=== PATIENT | female | born 1935 | race Caucasian/White ===

== ENCOUNTER → 2016-07-17 | Outpatient (CLI) | payer MEDICARE | END | disposition home or self-care (01) | LOC: LAB 08:45 | PROVIDERS: ATTEND Obstetrics & Gynecology | DX: R00.2 Palpitations (principal); E11.9 Type 2 diabetes mellitus without complications; I10 Essential (primary) hypertension; E03.9 Hypothyroidism, unspecified; K57.90 Diverticulosis of intestine, part unspecified, without perforation or abscess without bleeding; F41.9 Anxiety disorder, unspecified; M19.90 Unspecified osteoarthritis, unspecified site ==

== ENCOUNTER → 2016-07-28 | Outpatient (CLI) | payer MEDICARE ==
--- NOTE | 2016-07-31 11:27 | MAM ---
EXAM DESCRIPTION: Screening Mammogram,Bilateral CLINICAL HISTORY: 81 years, Female, Screening mammogram COMPARISON: February 03, 2014 TECHNIQUE: CC and MLO digital mammograms with computer aided detection. FINDINGS: There are scattered fibroglandular densities. There is no dominant mass nor any suspicious microcalcifications. Benign microcalcifications are present. IMPRESSION: BI-RADS 2: BENIGN FOLLOW-UP: Routine mammography screening. Electronically signed by: Alexys Garvin MD 07/31/2016 11:27 AM CDT
== END ==
LOC: RESP 09:54
PROVIDERS: ATTEND Obstetrics & Gynecology
DX: Z12.31 Encounter for screening mammogram for malignant neoplasm of breast (principal); R00.2 Palpitations
CPT/HCPCS: 93005; G0202

== ENCOUNTER → 2017-04-13 | Outpatient (CLI) | payer MEDICARE ==
--- NOTE | 2017-04-13 13:29 | US ---
EXAM DESCRIPTION: Renal: Ultrasound. CLINICAL HISTORY: RIGHT RENAL MASS D41.00 COMPARISON: Bilateral renal arterial Doppler evaluation on the same visit. TECHNIQUE: Transcutaneous scanning: Two-dimensional and Doppler modes. Technically difficult study due to patient body habitus and bowel gas. FINDINGS: Right kidney measures 7.9 x 4.7 x 5.1 cm; mid-renal cortical thickness 7 mm. . Increased in the cortex. No hydronephrosis No calcifications. Echogenic mass which appears to protrude from the mid kidney measuring 1.9 x 2.0 x 2.2 cm. Nonvascular. Relatively homogeneous. Otherwise lobulated contour of the kidney with no perinephric fluid. Normal vascularity. Proximal ureter not visualized. Left kidney measures 8.8 x 5.0 x 4.9 cm; mid-renal cortical thickness 8 mm.. Increased echogenicity of the cortex. No hydronephrosis. No calcifications. Lobulated contour of the kidney with no perinephric fluid. Normal vascularity.. Proximal ureter not visualized. Urinary bladder not visualized. Abdominal aorta diameter not measured. IMPRESSION: 1. Echogenic smooth mass projecting from the mid cortex of the right kidney. 2.2 cm maximum diameter This could represent a lipoma. Consider CT scan of the kidney without and with IV contrast. If renal function is diminished, consider MRI scan without and with gadolinium IV contrast. 2. Bilateral kidneys with increased cortical echoes and marked thinning. No hydronephrosis or large calcifications. Correlate for renal vascular disease. Electronically signed by: Nigel Hernandez MD 04/13/2017 1:28 PM [employer] [employer]
== END | disposition home or self-care (01) ==
LOC: US 08:01
PROVIDERS: ATTEND Urology
DX: D41.00 Neoplasm of uncertain behavior of unspecified kidney (principal)

== ENCOUNTER → 2017-06-01 | Outpatient (CLI) | payer MEDICARE ==
--- NOTE | 2017-06-01 17:28 | CT ---
EXAM DESCRIPTION: CT ABDOMEN AND PELVIS WITH CONTRAST CLINICAL HISTORY: RENAL CYST N28.1 renal mass COMPARISON: Previous CT abdomen and pelvis June 21, 2012 and February 03, 2011 as well as more recent sonogram April 13, 2017 TECHNIQUE: CT of the abdomen and pelvis are performed during IV bolus administration of 100 mL of Optiray 320. Oral contrast media is administered as well. FINDINGS: In the lower chest, scarring is seen in the left lung base with a calcified granuloma. Similar findings in the inferior lingula. In the right middle lobe, patchy chronic appearing consolidation is seen with clustered nodules in the peripheral segment of the right middle lobe and some patchy groundglass infiltrate. Bronchiectasis is seen in the area. Lesser nodularity with patchy infiltrate is seen in the lateral basal segment right lower lobe. Findings suggest indolent infection as with fungal or atypical mycobacterial agent. Similar lung disease was seen in the right middle lobe in May 2012. Heart size is normal. CT abdomen Multiple hepatic lesions are consistent with small and large cysts. These were present previously. The liver, spleen, pancreas, gallbladder, adrenal glands and stomach are otherwise normal in appearance. A mass in the posterior right kidney now measures 2.1 x 1.8 cm. This has increased in size since previous study in May 2012 where the lesion measured approximate 1.3 cm. The lesion is larger than on earlier study in 2010. Slowly growing mass in the kidney may be benign lesion such as oncocytoma (possible spoke wheel enhancement pattern). Angiomyolipoma without fatty components large enough to resolve on CT might be considered. The sonogram showed a hyperechoic mass raising the question of lipid content within the lesion. Multilocular cystic nephroma with multiple microcysts is possible but thought less likely. There is scarring in the left kidney. No retroperitoneal or mesenteric mass or adenopathy. No aortic aneurysm. No free air or free fluid. Bowel loops are unremarkable. No inflammation around the pancreas. No renal stones or hydronephrosis. No bowel dilatation to suggest obstruction. No free air or free fluid. CT pelvis Appendix appears normal. No inflammation around the cecum or terminal ileum or sigmoid colon. Numerous sigmoid diverticula are present. Calcifications in the pelvis are thought to be phleboliths. Uterus and ovaries are not seen, presumed to be surgically absent or small and atrophic. Bladder and distal ureters are negative for stones. Normal enhancement of pelvic vessels. No inguinal or lower pelvic adenopathy. Bone window images are negative for fracture or lytic lesion. Degenerative changes in the lower L-spine are prominent. Coronal and sagittal reformatted images confirm the findings. IMPRESSION: Posterior mid right renal mass has enlarged since previous studies. See above differential considerations. Scattered areas of renal cortical scarring in the left kidney. Multiple hepatic lesions consistent with cysts. Chronic appearing lung disease predominantly involving right middle lobe. This exam was performed according to our departmental dose-optimization program, which includes automated exposure control, adjustment of the mA and/or kV according to patient size and/or use of iterative reconstruction technique. Total DLP equals 448.58 mGycm. Electronically signed by: Ventura East MD 06/01/2017 5:27 PM [facility]
== END ==
LOC: LAB.O 08:03
PROVIDERS: ATTEND Urology
DX: N28.1 Cyst of kidney, acquired (principal)

== ENCOUNTER → 2018-09-27 | Outpatient (CLI) | payer MEDICARE | LOC: LAB.O 08:21 | PROVIDERS: ATTEND Family Medicine | DX: Z00.00 Encounter for general adult medical examination without abnormal findings (principal); E11.9 Type 2 diabetes mellitus without complications; M15.9 Polyosteoarthritis, unspecified; D51.9 Vitamin B12 deficiency anemia, unspecified; Z13.220 Encounter for screening for lipoid disorders ==

== ENCOUNTER → 2018-10-04 | Outpatient (CLI) | payer MEDICARE ==
--- NOTE | 2018-10-04 12:23 | MRI ---
EXAM DESCRIPTION: Brain w/oContrast: MRI. CLINICAL HISTORY: DEMENTIA COMPARISON: None. TECHNIQUE: Multiplanar, high-field MRI unit, multiple diffusion sequences, multiple conventional sequences without contrast. FINDINGS: Bilateral periventricular confluent hyperintense FLAIR and T2-weighted signal lesions in the spear radiata, and especially the centrum semiovale, frontoparietal and occipital lobes. Bilateral multiple foci of subcortical white matter lesions also. Frontal parietal and occipital lobes. Also bilateral focal temporal lobe subcortical white matter lesions. No hemorrhage, no cerebral edema, no mass-effect. No diffusion restriction. Multifocal hyperintense FLAIR lesions bilateral basal ganglia. No hemorrhage, mass effect, or diffusion restriction. Also prominent perivascular spaces. Bilaterally symmetric hyperintense FLAIR signal in the brainstem, without hemorrhage mass effect or diffusion restriction. Predominantly located in the joan. Normal signal in the bilateral cerebellar hemispheres. No hemorrhage, no parenchymal edema, no mass-effect. Concordance of the diffusion and non-diffusion sequences with no diffusion restriction. Cortical sulci, ventricles, and other CSF spaces, and the subdural spaces are age appropriate, including mild ventricular enlargement. No effacement or displacement. No midline shift. No extra-axial hemorrhage. Normal flow signal void in the major vessels of the [place], and the venous sinuses. IACs are symmetric bilaterally. Focal fluid signal in the right mastoid air cells; unremarkable on the left. No mass effect in the bilateral cerebellopontine angles. Pituitary gland occupies most of the sella. Base of the cerebellar tonsils is at the level of the foramen magnum. Marked left deviation of the posterior nasal septum, otherwise unremarkable paranasal sinuses. The bony calvarium is intact. IMPRESSION: 1. Diffuse bilateral white matter lesions in the centrum semiovale, spear radiata and subcortical white matter most likely related to aging/cerebral microvascular disease. Also involvement of the bilateral basal ganglia. Similar appearing lesions in the brainstem predominantly in the joan. No hemorrhage, no mass effect, no diffusion restriction. 2. Normal noncontrast MRI diffusion study with no evidence of acute or subacute, significant ischemia or infarction. 3. Most likely Inflammatory fluid in the right mastoid air cells. Posterior left deviation of the nasal septum. Electronically signed by: Nigel Hernandez MD 10/04/2018 12:21 PM CDT
== END ==
LOC: MRI 10:48
PROVIDERS: ATTEND Family Medicine
DX: F03.90 Unspecified dementia, unspecified severity, without behavioral disturbance, psychotic disturbance, mood disturbance, and anxiety (principal); R90.82 White matter disease, unspecified; J34.2 Deviated nasal septum

== ENCOUNTER → 2018-11-21 | Outpatient (CLI) | payer MEDICARE | LOC: YCFC.O 08:42 | PROVIDERS: ATTEND Family Medicine | DX: R01.1 Cardiac murmur, unspecified (principal); R09.89 Other specified symptoms and signs involving the circulatory and respiratory systems; E03.9 Hypothyroidism, unspecified ==

== ENCOUNTER → 2018-11-22 | Outpatient (CLI) | payer MEDICARE | LOC: US 13:04 | PROVIDERS: ATTEND Family Medicine | DX: R09.89 Other specified symptoms and signs involving the circulatory and respiratory systems (principal); R01.1 Cardiac murmur, unspecified ==

== ENCOUNTER 2019-04-25 09:16 | Emergency (ER) | payer MEDICARE ==
--- NOTE | 2019-04-25 10:21 | CT ---
EXAM DESCRIPTION: Head CLINICAL HISTORY: fall 2 am, rt forehead hematoma COMPARISON: MRI of the brain dated 10/04/2018. TECHNIQUE: Contiguous axial images through the head were obtained without intravenous contrast administration. Sagittal and coronal reconstructions were reviewed. FINDINGS: Moderate to severe periventricular white matter ischemia and moderate diffuse cortical volume loss. No evidence of acute major vascular territorial infarct or intraparenchymal hemorrhage. No intra-axial or extra-axial fluid collections are identified. The ventricles and cisterns appear normal in caliber. The sella and suprasellar regions appear normal. The structures of the posterior fossa are intact. The globes are intact bilaterally. The visualized paranasal sinuses and mastoid air cells are well-aerated. Right frontal scalp hematoma. No underlying acute bony abnormality. IMPRESSION: Right frontal scalp hematoma. No underlying acute bony abnormality or acute intercranial process. This exam was performed according to our departmental dose-optimization program, which includes automated exposure control, adjustment of the mA and/or kV according to patient size and/or use of iterative reconstruction technique. Electronically signed by: Lata York MD 04/25/2019 10:20 AM [facility]
--- NOTE | 2019-04-25 10:24 | CT ---
EXAM DESCRIPTION: Cervical Spine CLINICAL HISTORY: fall 2 am, rt forehead hematoma COMPARISON: None Available. TECHNIQUE: Cervical CT is performed with thin-section axial imaging. MPRs are created and reviewed as well. FINDINGS: The craniocervical junction is intact. The odontoid process is in good alignment with the lateral masses of C2. Straightening of the normal lordotic curvature of the lumbar spine. The vertebral body heights are well-maintained with no acute compression deformity. Multilevel degenerative disc disease and uncovertebral joint arthropathy is noted, worse at C4-C5 and C5-C6 levels. Grade 1 anterolisthesis of C6 over C7. No evidence of subluxation or spondylolisthesis. Mild scarring of the right lung apex. Remainder of the visualized prevertebral and paravertebral soft tissues appear normal. IMPRESSION: No acute traumatic abnormality of the cervical spine. This exam was performed according to our departmental dose-optimization program, which includes automated exposure control, adjustment of the mA and/or kV according to patient size and/or use of iterative reconstruction technique. Electronically signed by: Lata York MD 04/25/2019 10:22 AM [facility]
--- NOTE | 2019-04-25 10:31 | ED.PDOC ---
History of Present Illness - General Chief Complaint: Trauma Stated Complaint: head injury from fall Time Seen by Provider: 04/25/19 09:17 Exam Limitations: no limitations - History of Present Illness Initial Comments: The patient is a 83-year-old female presenting to the emergency room secondary to having tripped and fallen last night around 2 AM. She hit her right forehead. No laceration. She also hit her bottom lip. She has a very small non-gaping laceration there. No syncope. She is presenting secondary to the hematoma formation over the right forehead. No neck pain. No pain e lsewhere. No syncope. No altered mental status. No blood thinner use.No vision changes or dizziness. No pain with extraocular movements. No pain around the orbit itself. Timing/Duration: constant Severity: mild Improving Factors: nothing Worsening Factors: nothing Associated Symptoms: headaches Allergies/Adverse Reactions: Allergies NO KNOWN ALLERGY Allergy (Verified 04/25/19 09:28) Home Medications: Ambulatory Orders Pioglitazone HCl [Actos] 15 mg PO BEDTIME 04/25/19 Review of Systems - Review of Systems Constitutional: States: no symptoms reported EENTM: States: no symptoms reported Respiratory: States: no symptoms reported Cardiology: States: no symptoms reported Gastrointestinal/Abdominal: States: no symptoms reported Genitourinary: States: no symptoms reported Musculoskeletal: States: no symptoms reported, see HPI Skin: States: see HPI Neurological: States: headache Endocrine: States: no symptoms reported All other Systems: No Change from Baseline Past Medical History (General) - Patient Medical History Hx Stroke: No Hx Cardiac Disorders: No Hx Hypertension: Yes Hx Diabetes: Yes Hx MRSA: Yes - Leg 2007 MRSA Source:: Wound Family Medical History - Family History Mother Family History: No Known Physical Exam - Physical Exam General Appearance: Agitated, Alert, Comfortable, No apparent distress Eye Exam: bilateral normal Ears, Nose, Throat: hearing grossly normal, normal pharynx - Small laceration to the right lower lip. Non-gaping. Hemostatic. 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 No significant laceration to the forehead. Small laceration to the lip as above. Comments: Vital Signs - 24 hr 04/25/19 04/25/19 04/25/19 09:23 09:30 10:27 Temperature 96.6 F L 96.6 F L Pulse Rate [ 57 L 61 left brachial] Respiratory 18 16 Rate Blood Pressure 180/80 152/80 157/79 [left brachial] O2 Sat by Pulse 97 94 L Oximetry Progress - Progress Progress: 04/25/19 10:32 The patient is a 83-year-old female presenting to the emergency room after a fall last night at 2 AM. No evidence of concussion. Head CT showed no evidence of any intracranial pathology. CT scan of the cervical spine also show s no acute pathology. The patient will have significant bruising for the next couple of weeks. She should expect it to track downward. Motrin and Tylenol can be used for discomfort. Keep routine follow-up with primary care doctor. ER warnings were given for any worsening. abraham bruno [id number] Departure - Departure Clinical Impression: Hematoma of scalp Qualifiers: Encounter type: initial encounter Qualified Code(s): S00.03XA - Contusion of scalp, initial encounter Disposition: Discharge to Home or Self Care Condition: Fair Departure Forms: ED Discharge - Pt. Copy, Patient Portal Self Enrollment Diet: regular diet Activity: increase activity as tolerated Referrals: Jesse Orozco MD [Primary Care Provider] - 1-2 Weeks Home Medications: Ambulatory Orders Pioglitazone HCl [Actos] 15 mg PO BEDTIME 04/25/19 Additional Instructions: The patient is a 83-year-old female presenting to the emergency room after a fall last night at 2 AM. No evidence of concussion. Head CT showed no evidence of any intracranial pathology. CT scan of the cervical spine also shows no acute pathology. The patient will have significant bruising for the next couple of weeks. She should expect it to track downward. Motrin and Tylenol can be used for discomfort. Keep routine follow-up with primary care doctor. ER warnings were given for any worsening.
[2019-04-25 10:46] VITALS: BP 166/71; TEMP 97; O2SAT 91
== END 2019-04-25 10:42 | disposition home or self-care (01) ==
LOC: ER 09:16
DX: S00.03XA Contusion of scalp, initial encounter (principal); S00.83XA Contusion of other part of head, initial encounter; S01.511A Laceration without foreign body of lip, initial encounter; M50.323 Other cervical disc degeneration at C6-C7 level; I10 Essential (primary) hypertension; E11.9 Type 2 diabetes mellitus without complications; W01.0XXA Fall on same level from slipping, tripping and stumbling without subsequent striking against object, initial encounter; Y92.9 Unspecified place or not applicable

== ENCOUNTER → 2019-10-14 | Outpatient (CLI) | payer MEDICARE | LOC: LAB.O 10:23 | PROVIDERS: ATTEND Family Medicine | DX: E11.9 Type 2 diabetes mellitus without complications (principal); E03.9 Hypothyroidism, unspecified; E78.5 Hyperlipidemia, unspecified; I10 Essential (primary) hypertension ==

== ENCOUNTER 2020-01-20 08:36 | Emergency (ER) | payer MEDICARE ==
[2020-01-20 08:56] VITALS: TEMP 97.7
--- NOTE | 2020-01-20 09:26 | CT ---
Study: CT cervical spine. Indication: fall with loc Technique: Axial CT images were acquired through the cervical spine without intravenous contrast. Coronal and sagittal reformats performed. This exam was performed according to our departmental dose-optimization program, which includes automated exposure control, adjustment of the mA and/or kV according to patient size and/or use of iterative reconstruction technique. Comparison: None Findings: Vertebral body height maintained. Straightening cervical spine. No acute fracture. Multilevel degenerative changes cervical spine, most pronounced at C4-C5 and C5-C6 where there is severe disc space height loss and disc osteophyte complexes producing at least mild spinal canal narrowing and varying degrees of bilateral foraminal narrowing. Scattered atherosclerosis. Impression: No acute cervical fracture. Multilevel cervical disc disease. Dedicated MRI cervical spine can better evaluate as clinically indicated. Electronically signed by: Anival Iraheta MD 01/20/2020 9:24 AM CDT
--- NOTE | 2020-01-20 09:26 | RAD ---
Single frontal radiograph pelvis Indication: syncope Comparison: None Impression: No acute pelvic fracture identified. Evaluation for fracture is limited given the degree of osteopenia. If high clinical concern for acute fracture, correlation with MRI recommended given its greater sensitivity in the osteopenic patient. If the patient cannot tolerate MRI imaging or more urgent imaging is required, CT could be performed, however it is less sensitive in the osteopenic patient when compared to MRI. 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 Lower lumbar disc disease. Electronically signed by: Anival Iraheta MD 01/20/2020 9:25 AM CDT
--- NOTE | 2020-01-20 09:27 | RAD ---
Study: Single Frontal Radiograph of the Chest. Indication:syncope Comparison: None Impression: Heart size normal. Patchy bibasilar atelectasis versus scarring. Lungs hyperexpanded suggesting emphysema. Several calcified granulomas of the bilateral lungs. No pleural effusion or pneumothorax. Osteopenia. If this is a new finding, DEXA scan recommended as well as evaluation for possible osteoporosis treatment. Electronically signed by: Anival Iraheta MD 01/20/2020 9:25 AM CDT
--- NOTE | 2020-01-20 09:28 | CT ---
Study: CT of the Head. Indication: fall with loc Technique: Axial CT images of the head were acquired without intravenous contrast. This exam was performed according to our departmental dose-optimization program, which includes automated exposure control, adjustment of the mA and/or kV according to patient size and/or use of iterative reconstruction technique. Comparison: April 25, 2019. Findings: Examination is mild to moderately motion degraded. Right frontotemporal subdural hemorrhage measuring up to 8 mm in thickness with minimal mass effect on the underlying brain parenchyma. 2 mm right to left midline shift. No hydrocephalus. Additional left parafalcine frontoparietal subdural hematoma noted measuring up to 5 mm. Ventricles are normal in configuration without hydrocephalus. Patchy hypoattenuation of the periventricular and subcortical white matter noted. This is nonspecific but most consistent with chronic microvascular ischemic change. Global parenchymal volume loss and intracranial atherosclerosis noted as well. Paranasal sinuses are adequately aerated. Mastoid air cells are adequately aerated. Osseous structures and soft tissues are unremarkable. Impression: Acute right frontotemporal and left parafalcine subdural hematomas with minimal mass effect as above. Baseline neurosurgery consultation recommended. Senescent changes. Findings on this exam were relayed to Miguel Angel Black at 01/20/2020 9:26 AM CDT. Electronically signed by: Anival Iraheta MD 01/20/2020 9:27 AM CDT
--- NOTE | 2020-01-20 09:34 | ED.PDOC ---
History of Present Illness - General Chief Complaint: Trauma Stated Complaint: fall Time Seen by Provider: 01/20/20 08:43 Source: patient Exam Limitations: no limitations - History of Present Illness Initial Comments: The patient is a 84-year-old female presents emergency room after having fallen in the [place] this morning and been unconscious for approximately 5 minutes. The patient does not remember the event. He does look like she probably bit her tongue. She did have fecal and urinary incontinence. She does have a mild headache. She is alert and oriented currently. She is able to give her name, her birthday, the current month and who is president. She does pleasant and cooperative though she does a little bit drowsy still. She is shaking from cold. She is moving all 4 extremities. Pupils are symmetrical and reactive. Blood pressures are elevated though again the patient is extremely cold at this point. We will get her warmed up. She denies taking any blood thinners. None are on her medication list. She denies any neck pain or pelvic pain she appears to be moving all extremities well. Timing/Duration: momentarily Severity: severe Improving Factors: nothing Worsening Factors: nothing Associated Symptoms: denies symptoms Allergies/Adverse Reactions: Allergies NO KNOWN ALLERGY Allergy (Verified 01/20/20 09:04) Home Medications: Ambulatory Orders Pioglitazone HCl [Actos] 15 mg PO BEDTIME 04/25/19 Amitriptyline HCl [Amitriptyline Hydrochlori] 50 mg PO BEDTIME 01/20/20 Levothyroxine Sodium 75 mcg PO DAILY 01/20/20 Lisinopril 5 mg PO DAILY 01/20/20 Meloxicam 15 mg PO DAILY 01/20/20 Pravastatin Sodium 10 mg PO DAILY 01/20/20 Review of Systems - Review of Systems Constitutional: States: malaise EENTM: States: no symptoms reported Respiratory: States: no symptoms reported Cardiology: States: no symptoms reported Gastrointestinal/Abdominal: States: no symptoms reported Genitourinary: States: no symptoms reported Musculoskeletal: States: no symptoms reported Skin: States: no symptoms reported Neurological: States: see HPI, headache Endocrine: States: no symptoms reported All other Systems: No Change from Baseline Past Medical History (General) - Patient Medical History Hx Stroke: No Hx Cardiac Disorders: No Hx Congestive Heart Failure: No Hx Hypertension: Yes Hx Diabetes: Yes Hx MRSA: Yes - Leg 2008 MRSA Source:: Wound - Activities of Daily Living Hospice Agency (if applicable):: None - Female History Patient : No Family Medical History - Family History Mother Family History: No Known Physical Exam - Physical Exam General Appearance: Alert - She is a little bit drowsy. She is shaking from a cold., Frail Eye Exam: bilateral normal Ears, Nose, Throat: hearing grossly normal, other - She does appear to have bit her tongue at the tip. It is a little bruised but hemostatic. Neck: non-tender, supple Respiratory: lungs clear, normal breath sounds, no respiratory distress, no accessory muscle use Cardiovascular/Chest: normal peripheral pulses, no edema, other - Regular rate Peripheral Pulses: radial,right: 2+, radial,left: 2+ Gastrointestinal/Abdominal: non tender, soft Rectal Exam: other - Pelvis appears stable. Midface appears stable. Back Exam: no CVA tenderness, no vertebral tenderness Extremity: normal range of motion, non-tender, normal inspection, no pedal edema, normal capillary refill Neurologic: rotary drum dyer II-XII nml as tested, alert, oriented x 3 Skin Exam: normal color Comments: Vital Signs - 24 hr 01/20/20 01/20/20 08:40 08:49 Temperature 97.7 F Pulse Rate [ 89 89 pulse ox] Respiratory 20 20 Rate Blood Pressure 191/85 [Left Arm] O2 Sat by Pulse 97 Oximetry Repeat systolic blood pressures ranging 170s to 180s. Progress - Progress Progress: 01/20/20 09:40 The patient is an 84-year-old female presenting after a fall at home this morning with syncope of approximately 5 minutes. The patient has a subdural and parafalcine hemorrhage. She is currently alert and oriented. She is mildly hypertensive but not to the point that we will correct for now. No evidence of any blood thinner use. No significant midline shift and no evidence of any significant herniation. The patient is being transferred to [facility] for neurosurgery evaluation. Laboratory work appears largely reassuring. Other imaging appears largely reassuring. Transferring emergently for higher level of care. Acceptance is appreciated. abraham bruno [phone] - Results/Orders Results/Orders: CT scan of the cervical spine shows no acute pathology. 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 See report for details. Chest x-ray shows some atelectasis and emphysema changes. No acute changes however. See report for details. Plain x-ray of the pelvis showed no evidence of any fracture or dislocation. See report for details. CT scan of the head shows a right frontotemporal subdural hemorrhage measuring up to 8 mm in thickness with minimal mass-effect. 2 mm right to left midline shift. No hydrocephalus. There is also a left parafalcine fronto parietal subdural hematoma measuring up to 5 mm. No intraparenchymal hemorrhage and no intraventricular hemorrhage. Laboratory Tests 01/20/20 01/20/20 01/20/20 08:40 08:40 08:40 WBC 9.2 RBC 3.99 L Hgb 13.4 Hct 37.9 MCV 95.0 MCH 33.5 H MCHC 35.2 RDW 12.9 Plt Count 249 MPV 7.7 Absolute Neuts (auto) 3.80 Absolute Lymphs (auto) 3.80 H Absolute Monos (auto) 1.00 H Absolute Eos (auto) 0.60 H Absolute Basos (auto) 0.10 Neutrophils % 41.8 L Lymphocytes % 41.2 Monocytes % 10.4 H Eosinophils % 6.0 H Basophils % 0.6 PT 10.1 INR 1.02 PTT (SP) 25.0 Sodium 140 Potassium 4.0 Chloride 103 Carbon Dioxide 25 Anion Gap 16.0 BUN 16 Creatinine 0.94 BUN/Creatinine Ratio 17.0 Random Glucose 112 H Serum Osmolality 281.3 Calcium 8.5 Magnesium Total Bilirubin 0.7 AST 22 ALT 13 Alkaline Phosphatase 80 Creatine Kinase 91 CK-MB (CK-2) 2.2 CK-MB (CK-2) % Not Reportable Troponin I < 0.02 B-Natriuretic Peptide 33.8 Serum Total Protein 6.6 Albumin 3.6 Globulin 3.0 Albumin/Globulin Ratio 1.2 TSH 01/20/20 08:40 WBC RBC Hgb Hct MCV MCH MCHC RDW Plt Count MPV Absolute Neuts (auto) Absolute Lymphs (auto) Absolute Monos (auto) Absolute Eos (auto) Absolute Basos (auto) Neutrophils % Lymphocytes % Monocytes % Eosinophils % Basophils % PT INR PTT (SP) Sodium Potassium Chloride Carbon Dioxide Anion Gap BUN Creatinine BUN/Creatinine Ratio Random Glucose Serum Osmolality Calcium Magnesium 2.2 Total Bilirubin AST ALT Alkaline Phosphatase Creatine Kinase CK-MB (CK-2) CK-MB (CK-2) % Troponin I B-Natriuretic Peptide Serum Total Protein Albumin Globulin Albumin/Globulin Ratio TSH 0.27 L EKG shows what I believe is a normal sinus rhythm with first-degree block. Poor R wave progression in anterior leads. No ST segment or T wave changes indicative of acute ischemia. Normal QT interval. Normal axis. Departure - Departure Clinical Impression: Subdural hematoma Disposition: Transfer to Hospital Condition: Serious Departure Forms: ED Discharge - Pt. Copy, Patient Portal Self Enrollment Instructions: DI for Trauma Referrals: Jesse Orozco MD [Primary Care Provider] - 1-2 Weeks Home Medications: Ambulatory Orders Pioglitazone HCl [Actos] 15 mg PO BEDTIME 04/25/19 Amitriptyline HCl [Amitriptyline Hydrochlori] 50 mg PO BEDTIME 01/20/20 Levothyroxine Sodium 75 mcg PO DAILY 01/20/20 Lisinopril 5 mg PO DAILY 01/20/20 Meloxicam 15 mg PO DAILY 01/20/20 Pravastatin Sodium 10 mg PO DAILY 01/20/20 Transfer to Outside Facility - Transfer Information Decision to Transfer Date: 01/20/20 Decision to Transfer Time: 09:42 Reason for Transfer: required specialist not available Accepting Provider:: dr benton Accepting Facility: [facility]
[2020-01-20] MEDS ORDERED: PHENYTOIN SODIUM INJ 1,000 MG in SODIUM CHLORIDE 0.9% 100ML 100 ML IVPB ONE (09:43)
[2020-01-20] MEDS ORDERED: PHENYTOIN SODIUM INJ 250 MG/5 ML VIAL ONE (09:44)
[2020-01-20] MEDS ORDERED: SODIUM CHLORIDE 0.9% 100ML 100 ML IVPB ONE (09:44)
[2020-01-20 09:56] VITALS: BP 181/87; O2SAT 96
== END 2020-01-20 09:56 | disposition short-term general hospital (02) ==
LOC: ER 08:36
DX: S06.5X1A Traumatic subdural hemorrhage with loss of consciousness of 30 minutes or less, initial encounter (principal); I44.0 Atrioventricular block, first degree; E11.9 Type 2 diabetes mellitus without complications; I10 Essential (primary) hypertension; Z86.14 Personal history of Methicillin resistant Staphylococcus aureus infection; Z20.828 Contact with and (suspected) exposure to other viral communicable diseases; W01.0XXA Fall on same level from slipping, tripping and stumbling without subsequent striking against object, initial encounter; Y92.008 Other place in unspecified non-institutional (private) residence as the place of occurrence of the external cause
CPT/HCPCS: 36415; 70450; 71045; 72125; 72170; 80053; 82550; 82553; 83605; 83735; 83880; 84443; 84484; 85025; 85610; 85730; 87635; 93005; J7050

== ENCOUNTER 2020-02-08 01:21 | Emergency (ER) | payer MEDICARE ==
--- NOTE | 2020-02-08 02:14 | ED.PDOC ---
History of Present Illness - General Chief Complaint: Neuro Symptoms/Deficits Stated Complaint: AMS Time Seen by Provider: 02/08/20 02:08 Source: RN notes reviewed, family, EMS Exam Limitations: other - dementia - History of Present Illness Initial Comments: The patient is an 84 year old brought in by EMS for altered mental status. The patient is unable to provide significant history due to her severe dementia, she is oriented to self only. The patient's states that around 0100 she "started talking out of her head." She was wandering around the house and thought that she was on top of a hotel. She was very confused. He became concerned because of her recent admission for a head bleed although no neurosurgical intervention was required. He contacted his home healthcare agency who recommended he come to the ER to rule out infection or other medical etiology. Allergies/Adverse Reactions: Allergies NO KNOWN ALLERGY Allergy (Verified 02/08/20 01:34) Home Medications: Ambulatory Orders Pioglitazone HCl [Actos] 15 mg PO BEDTIME 04/25/19 Amitriptyline HCl [Amitriptyline Hydrochlori] 50 mg PO BEDTIME 01/20/20 Levothyroxine Sodium 75 mcg PO DAILY 01/20/20 Lisinopril 5 mg PO DAILY 01/20/20 Meloxicam 15 mg PO DAILY 01/20/20 Pravastatin Sodium 10 mg PO DAILY 01/20/20 Review of Systems - Review of Systems Unable to Obtain Due To: dementia Past Medical History (General) - Patient Medical History Hx Stroke: No Hx Cardiac Disorders: No Hx Congestive Heart Failure: No Hx Hypertension: Yes Hx Diabetes: No Hx MRSA: Yes - Leg 2008 MRSA Source:: Wound - Female History Patient is a Female of Child Bearing Age (10 -59 yrs old): No Patient : No Family Medical History - Family History Mother Family History: No Known Physical Exam - Physical Exam General Appearance: Anxious, No apparent distress, Unkempt Ears, Nose, Throat: normal ENT inspection Neck: non-tender, full range of motion Respiratory: lungs clear, normal breath sounds, no respiratory distress, no accessory muscle use Cardiovascular/Chest: normal peripheral pulses, regular rate, rhythm Gastrointestinal/Abdominal: non tender, soft Neurologic: no motor/sensory deficits, other - oriented to self only Progress - Results/Orders Results/Orders: 02/08/20 01:27 EKG Assessment ONCE 02/08/20 01:30 EKG STAT Laboratory Results - last 24 hr 02/08/20 02/08/20 02/08/20 01:45 02:15 02:15 WBC 8.8 RBC 4.24 Hgb 13.9 Hct 39.4 MCV 93.0 MCH 32.8 H MCHC 35.3 RDW 13.2 Plt Count 545 H MPV 6.5 L Absolute Neuts (auto) 6.20 Absolute Lymphs (auto) 1.60 Absolute Monos (auto) 0.60 Absolute Eos (auto) 0.30 Absolute Basos (auto) 0.10 Neutrophils % 71.3 Lymphocytes % 17.7 L Monocytes % 6.8 Eosinophils % 3.1 Basophils % 1.1 Sodium 139 Potassium 3.8 Chloride 100 L Carbon Dioxide 27 Anion Gap 15.8 BUN 16 Creatinine 0.84 BUN/Creatinine Ratio 19.0 Random Glucose 125 H Serum Osmolality 280.2 Lactic Acid Calcium 9.1 Urine Color Yellow Urine Appearance Clear Urine pH 6.0 Ur Specific [place] 1.020 Urine Protein Negative Urine Glucose (UA) Negative Urine Ketones Negative Urine Blood Negative Urine Nitrite Negative Urine Bilirubin Negative Urine Urobilinogen 4.0 H Ur Leukocyte Esterase Negative Urine RBC 0 Urine WBC 0 Ur Epithelial Cells 0 Urine Bacteria 0 02/08/20 02:15 WBC RBC Hgb Hct MCV MCH MCHC RDW Plt Count MPV Absolute Neuts (auto) Absolute Lymphs (auto) Absolute Monos (auto) Absolute Eos (auto) Absolute Basos (auto) Neutrophils % Lymphocytes % Monocytes % Eosinophils % Basophils % Sodium Potassium Chloride Carbon Dioxide Anion Gap BUN Creatinine BUN/Creatinine Ratio Random Glucose Serum Osmolality Lactic Acid 1.2 Calcium Urine Color Urine Appearance Urine pH Ur Specific [place] Urine Protein Urine Glucose (UA) Urine Ketones Urine Blood Urine Nitrite Urine Bilirubin Urine Urobilinogen Ur Leukocyte Esterase Urine RBC Urine WBC Ur Epithelial Cells Urine Bacteria 03:25: Patient reassessed, workup as above. There is no evidence for UTI or other infectious etiology. She is not septic. reports that she is currently at her baseline and does not voice any complaints. She has been cooperative in the ER. Suspect sundowning/dementia related. Discussed behavioral therapy/modification. Will continue outpatient symptomatic management and they will follow up with PCP. Michele Graham MD Emergency Medicine Physician Number [id number] - EKG/XRAY/CT Xray Comments: No acute findings on CXR CT: Evolving subdural hematoma no change from prior, no acute bleed Departure - Departure Clinical Impression: SunDown syndrome Dementia Qualifiers: Dementia type: Alzheimer's disease Time of Disposition: Disposition: Discharge to Home or Self Care Condition: Fair Departure Forms: ED Discharge - Pt. Copy, Patient Portal Self Enrollment Instructions: Dementia (Including Alzheimer Disease), Alzheimer Disease (DC), Tips for Caregivers of People With Alzheimer Disease, Dementia (DC) Diet: resume usual diet Activity: increase activity as tolerated Referrals: Jesse Orozco MD [Primary Care Provider] - 1-2 Weeks Home Medications: Ambulatory Orders Pioglitazone HCl [Actos] 15 mg PO BEDTIME 04/25/19 Amitriptyline HCl [Amitriptyline Hydrochlori] 50 mg PO BEDTIME 01/20/20 Levothyroxine Sodium 75 mcg PO DAILY 01/20/20 Lisinopril 5 mg PO DAILY 01/20/20 Meloxicam 15 mg PO DAILY 01/20/20 Pravastatin Sodium 10 mg PO DAILY 01/20/20
--- NOTE | 2020-02-08 03:15 | RAD ---
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 FINDINGS: Single view of the chest was obtained portable. Prior films were compared. Again there is bowel content within the right hemidiaphragm similar to prior study. The cardiomediastinal silhouette demonstrate to be unremarkable. The heart is not enlarged. There is minimal intimal aortic arch calcification. Costophrenic angles are sharp. No areas of consolidation or masses are seen. External EKG leads within the [id number] limits diagnosis. The rest of the soft tissue and bony structures demonstrate to be unremarkable. IMPRESSION: NO ACUTE CARDIOPULMONARY DISEASE SEEN. Electronically signed by: Fernando Wesley MD 02/08/2020 3:13 AM DISK AND TAPE MACHINE TENDER
--- NOTE | 2020-02-08 03:19 | CT ---
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 FINDINGS: Multiple transaxial tomograms of the brain were obtained from the base of the skull to the vertex without contrast. 2-D multiplanar reformats and the coronal and sagittal plane were performed and reviewed. An individualized dose optimization technique, Automated Exposure Control, was utilized for the performed procedure. Again several of the images are degraded by motion artifact limiting diagnostic value. There is a evolving subdural hematoma with low density similar in comparison with prior study measuring 0.9 cm at the greatest width on coronal image 40/101. No evidence for acute component is demonstrated. There is no significant mass effect and/or midline shifts. Lateral ventricles and cisterns displace normal appearance. No new intra or extra axial fluid collections were seen. The calvarium is intact with no evidence for fracture. Visualized portions of the paranasal sinuses and orbits demonstrate to be clear. IMPRESSION: COMPROMISED STUDY DUE TO MOTION ARTIFACT. HYPODENSE/EVOLVING PREVIOUS DESCRIBED SUBDURAL HEMATOMA MEASURING AT ITS GREATEST WIDTH 9 MM. NO MASS EFFECT AND/OR MIDLINE SHIFT. NO EVIDENCE FOR ACUTE INTRACRANIAL HEMORRHAGE. Electronically signed by: Fernando Wesley MD 02/08/2020 3:17 AM IN FLIGHT REFUELING OPERATOR
[2020-02-08 03:47] VITALS: BP 104/82; TEMP 98.2; O2SAT 94
== END 2020-02-08 03:30 | disposition home or self-care (01) ==
LOC: ER 01:21
DX: G30.9 Alzheimer's disease, unspecified (principal); F02.80 Dementia in other diseases classified elsewhere, unspecified severity, without behavioral disturbance, psychotic disturbance, mood disturbance, and anxiety; F05 Delirium due to known physiological condition; I10 Essential (primary) hypertension; Z79.899 Other long term (current) drug therapy

== ENCOUNTER → 2020-03-02 | Outpatient (CLI) | payer MEDICARE ==
--- NOTE | 2020-03-02 15:28 | CT ---
EXAM DESCRIPTION: Head CLINICAL HISTORY: 84 years Female, Acute right SDH. Left parafalcine SDH COMPARISON: CT head 02/08/2020 TECHNIQUE: Axial images obtained from the skull base to the vertex without intravenous contrast with images. Coronal and sagittal reformations provided. This exam was performed according to our departmental dose-optimization program, which includes automated exposure control, adjustment of the mA and/or kV according to patient size and/or use of iterative reconstruction technique. Time Last Seen Well (If known) for Code Stroke: n/a FINDINGS: Brain Parenchyma, ventricles, meninges, and extra-axial spaces: Mild general cerebral and loss. Moderate to severe Nonspecific white matter hypodensities in the cerebral hemispheres likely related to ischemic small vessel disease. Possible difficulty differentiating a small acute infarction given these hypodensities. No acute cranial hemorrhage. Chronic lacunar infarction versus prominent perivesical space inferior left basal ganglia. Nearly resolved right hemispheric subdural fluid collection. No new abnormal extra-axial fluid collection. No midline shift or herniation. Vascular: Atherosclerosis is within the carotid siphons. Calvarium, paranasal sinuses, mastoids, and orbits: Calvarium intact. Visualized paranasal sinuses and mastoid air cells clear. Orbits unremarkable. IMPRESSION: 1. Newly resolved right hemispheric subdural fluid collection. No midline shift or herniation. 2. Additional findings as above. Electronically signed by: Cecilio Prater MD 03/02/2020 3:26 PM [facility]
== END ==
LOC: CT 09:39
PROVIDERS: ATTEND Nurse Practitioner Acute Care
DX: S06.5X0A Traumatic subdural hemorrhage without loss of consciousness, initial encounter (principal); R90.82 White matter disease, unspecified; G93.9 Disorder of brain, unspecified

== ENCOUNTER → 2020-04-05 | Outpatient (CLI) | payer MEDICARE | LOC: HHH 13:08 | PROVIDERS: ATTEND Family Medicine | DX: E03.9 Hypothyroidism, unspecified (principal); E11.9 Type 2 diabetes mellitus without complications; E78.5 Hyperlipidemia, unspecified; I10 Essential (primary) hypertension ==